=== PATIENT | male | born 1950 | race Caucasian/White ===

== ENCOUNTER 2024-02-07 09:44 | Day surgery (SDC) | payer MEDICARE, BC ==
[2024-02-07] MEDS: Lactated Ringers 1,000 ML IV SCH (10:02)
[2024-02-07] MEDS ORDERED: Propofol 200 MG/20 ML SDV ONE ×2 (10:10)
[2024-02-07] MEDS ORDERED: Ketamine 200 MG/20 ML MDV ONE (10:10)
[2024-02-07] MEDS ORDERED: fentaNYL 50 MCG/ML SDV ONE (10:10)
== END 2024-02-07 11:40 | disposition home or self-care (01) ==
LOC: CC.SDS 09:44
PROVIDERS: ATTEND Family Medicine
DX: Z12.11 Encounter for screening for malignant neoplasm of colon (principal); D12.0 Benign neoplasm of cecum; D12.3 Benign neoplasm of transverse colon; D12.5 Benign neoplasm of sigmoid colon; D12.8 Benign neoplasm of rectum; K57.30 Diverticulosis of large intestine without perforation or abscess without bleeding; E78.5 Hyperlipidemia, unspecified; Z79.899 Other long term (current) drug therapy; Z91.030 Bee allergy status
CPT/HCPCS: 00811; 88305; 99100; J2704; J3010; J3490; J7120